=== PATIENT | male | born 1995 | race Caucasian/White ===

== ENCOUNTER 2017-11-26 08:50 | Emergency (ER) | payer OTHER, SELFPAY ==
[2017-11-26 09:21] VITALS: BP 135/77; PULSE 96; RESP 20; TEMP 36.6; O2SAT 97; BMI 25.8
--- NOTE | 2017-11-26 09:45 | HMH.EDUTC ---
[facility] [place] Clinical Impression: Acute pharyngitis Qualifiers: Pharyngitis/tonsillitis etiology: unspecified etiology Qualified Code(s): J02.9 - Acute pharyngitis, unspecified Disposition: Home, Self-Care Condition on Discharge: Good Instructions: DI for Viral Pharyngitis Additional Instructions: * No sign of bacterial infection. Likely viral. Virus can take 7-14 days to run their course * Monitor Temp. Tylenol every 4 hours as needed no more then 5 times a day or 4000mg in 24 hours and/or ibuprofen every 6 hours as needed no more then 3200mg in 24 hours (as long as your primary care doctor has told you that it is ok to take both) for fever/aches/pain. ER if fever no less than 101 despite tylenol and ibuprofen * Encourage fluids, water, gatorade, powerade, pedialyte if /toddler/child * warm salt water gargles * warm fluids * sore throat lozenges * sleep elevated * humidifier/vaporizer * Continue flonase. 2 sprays each nostril daily but may take 2-3 days to notice improvement with it. * Continue antihistamine * * Your throat swab was sent for culture. Those results are typically sent to your primary care. Be sure to follow up in 2-3 days if no improvement so they can review those results and treat if necessary. If you don't have primary care, I recommend you get one but in the mean time, you will have to return to a walk in clinic. Referrals: Provider,Referral, [Primary Care Provider] - (Immediately for new or worsening symptoms or if no noticeable improvement in 2-3 days. Follow up in 2-3 days on throat culture results) Forms: Work/School Release Time of Disposition: 10:07 Medical Decision Making Vital Signs: 11/26/17 09:21 Temperature 98 F Temperature Source Temporal Artery Scan Pulse Rate [Left Brachial] 96 H Respiratory Rate 20 Blood Pressure [Left Arm] 135/77 Blood Pressure Mean [Left Arm] 96 Blood Pressure Source [Left Arm] Automatic Cuff Blood Pressure Position [Left Arm] Sitting 02 Sat by Pulse Oximetry 97 Oxygen Delivery Method Room Air - Lab Data Lab results reviewed: Yes: I reviewed the patient's lab results. - Johnathan Inquiry Pt receiving controlled substance: No [facility] [place] - General Stated complaint: soa congestion Time Seen by Provider: 11/26/17 09:35 Mode of Arrival: Ambulatory Source of Information: Patient Limitations: No Limitations Description of Symptoms (Recalled from Triage Doc. by RN): Sinus pressure and congestion HEENT Symptoms (Recalled from RN notes): Yes (sinus pressure and congestion) Resp Symptoms (Recalled from RN notes): No Skin Symptoms (Recalled from RN notes): No MS Symptoms (Recalled from RN notes): No Functional Status (Recalled from RN notes): n/a - History of Present Illness Provider Complaint: c/o nasal congestion starting late Wednesday, woke up with nasal congestion and just felt tired and weak . Last night took zyrtec, flonase and drank pickle juice before bed. Woke up this morning with worsening nasal congestion, sore throat, mild cough. No known sick contacts. - Related Data Allergies Allergy/AdvReac Type Severity Reaction Status Date / Time No Known Allergies Allergy Verified 11/26/17 09:31 - Worker's Comp Is this a Worker's Comp case?: No H History I have reviewed the patient's past medical history: Yes Medical History: Denies:: Cancer, Diabetes Mellitus Type 1, Diabetes Mellitus Type 2, Hypertension, MRSA Other Surgeries: Yes: No Previous Surgery Amputation: No Fractures: No - *Social History Smoking Status: Current every day smoker Tobacco Type: cigarettes Alcohol Intake: never - Psychiatric History Expresses thoughts of harming self/others: None Suicide Plan Description: No Plan ROS Obtained: Yes Systems reviewed as appropriate & no additional complaints - Constitutional Constitutional: Denies body ache, Reports chills, Denies difficulty sleeping, Reports fatigue, Denies fever(s), Denies poor appetite
--- NOTE | 2017-11-26 09:48 | ED_ITS ---
[facility] [place] Clinical Impression: Acute pharyngitis Qualifiers: Pharyngitis/tonsillitis etiology: unspecified etiology Qualified Code(s): J02.9 - Acute pharyngitis, unspecified Disposition: Home, Self-Care Condition on Discharge: Good Instructions: DI for Viral Pharyngitis Additional Instructions: * No sign of bacterial infection. Likely viral. Virus can take 7-14 days to run their course * Monitor Temp. Tylenol every 4 hours as needed no more then 5 times a day or 4000mg in 24 hours and/or ibuprofen every 6 hours as needed no more then 3200mg in 24 hours (as long as your primary care doctor has told you that it is ok to take both) for fever/aches/pain. ER if fever no less than 101 despite tylenol and ibuprofen * Encourage fluids, water, gatorade, powerade, pedialyte if /toddler/ child * warm salt water gargles * warm fluids * sore throat lozenges * sleep elevated * humidifier/vaporizer * Continue flonase. 2 sprays each nostril daily but may take 2-3 days to notice improvement with it. * Continue antihistamine * * Your throat swab was sent for culture. Those results are typically sent to your primary care. Be sure to follow up in 2-3 days if no improvement so they can review those results and treat if necessary. If you don't have primary care , I recommend you get one but in the mean time, you will have to return to a walk in clinic. Referrals: Provider,Referral, [Primary Care Provider] - (Immediately for new or worsening symptoms or if no noticeable improvement in 2-3 days. Follow up in 2- 3 days on throat culture results) Forms: Work/School Release Time of Disposition: 10:07 Medical Decision Making Vital Signs: 11/26/17 09:21 Temperature 98 F Temperature Source Temporal Artery Scan Pulse Rate [Left Brachial] 96 H Respiratory Rate 20 Blood Pressure [Left Arm] 135/77 Blood Pressure Mean [Left Arm] 96 Blood Pressure Source [Left Arm] Automatic Cuff Blood Pressure Position [Left Arm] Sitting 02 Sat by Pulse Oximetry 97 Oxygen Delivery Method Room Air - Lab Data Lab results reviewed: Yes: I reviewed the patient's lab results. - Johnathan Inquiry Pt receiving controlled substance: No [facility] [place] - General Stated complaint: soa congestion Time Seen by Provider: 11/26/17 09:35 Mode of Arrival: Ambulatory Source of Information: Patient Limitations: No Limitations Description of Symptoms (Recalled from Triage Doc. by RN): Sinus pressure and congestion HEENT Symptoms (Recalled from RN notes): Yes (sinus pressure and congestion) Resp Symptoms (Recalled from RN notes): No Skin Symptoms (Recalled from RN notes): No MS Symptoms (Recalled from RN notes): No Functional Status (Recalled from RN notes): n/a - History of Present Illness Provider Complaint: c/o nasal congestion starting late Wednesday, woke up with nasal congestion and just felt tired and weak . Last night took zyrtec, flonase and drank pickle juice before bed. Woke up this morning with worsening nasal congestion, sore throat, mild cough. No known sick contacts. - Related Data Allergies Allergy/AdvReac Type Severity Reaction Status Date / Time No Known Allergies Allergy Verified 11/26/17 09:31 - Worker's Comp Is this a Worker's Comp case?: No H History I have reviewed the patient's past medical history: Yes Medical History: Denies:: Cancer, Diabetes Mellitus Type 1, Diabetes Mellitus Type 2, Hypertension, MRSA
[2017-11-26 10:08] LABS: UTC Influenza A Antigen Negative (Negative); UTC Influenza B Antigen Negative (Negative)
[2017-11-26 10:10] LABS: UTC Strep Screen (Rapid) Negative (Negative)
[2017-11-26 10:11] VITALS: BP 135/77; PULSE 96; RESP 20; TEMP 36.6; O2SAT 97
== END 2017-11-26 10:12 | disposition home or self-care (01) ==
PROVIDERS: Emergency Provider Nurse Practitioner Family; Family Provider Pediatrics
DX: J02.9 Acute pharyngitis, unspecified (principal)
CPT/HCPCS: 87804; 87880; 99202

== ENCOUNTER → 2018-05-12 13:34 | Outpatient (CLI) | payer OTHER, SELFPAY ==
--- NOTE | 2018-05-12 13:36 | MR_ITS ---
MR head/brain wo/w con HISTORY: ITS.REASON: INTRACTABLE ACUTE POST-TRAUMATIC HEADACHE ORDERING PHYSICIAN: Natalia Gonzalez MD PATIENT AGE: 23 years Comparison: 04/26/2018 TECHNIQUE: Standard multiplanar multiecho sequences are performed without and with gadolinium enhancement . FINDINGS: No midline shift, mass effect, intracranial hemorrhage, or hydrocephalus is evident. No enhancing lesions are apparent. No intra or extra-axial mass. No evidence of intra or extra-axial hemorrhage. The cerebellopontine angles, cerebellum, and brainstem are unremarkable. The pituitary and optic chiasm are unremarkable. No cerebellar ectopia. The craniocervical junction has an unremarkable appearance. There is no evidence of infarction. There is a 2 cm retention cyst in the left maxillary sinus. No mastoid effusion. IMPRESSION: 1. No acute intracranial findings. 2. 2 cm left maxillary retention cyst
== END ==
PROVIDERS: Family Provider Pediatrics; PCP Pediatrics; Visit Provider Emergency Medicine
DX: G44.311 Acute post-traumatic headache, intractable (principal)
CPT/HCPCS: 70553; A9576

== ENCOUNTER → 2018-06-16 15:13 | Outpatient (POV) | payer OTHER, SELFPAY | PROVIDERS: Family Provider Pediatrics; PCP Emergency Medicine; Visit Provider Dermatology | DX: Z00.00 Encounter for general adult medical examination without abnormal findings (principal) ==

== ENCOUNTER → 2018-07-04 15:56 | Outpatient (CLI) | payer OTHER, SELFPAY | PROVIDERS: PCP Emergency Medicine; Visit Provider Otolaryngology | DX: G47.33 Obstructive sleep apnea (adult) (pediatric) (principal); R06.83 Snoring; R40.0 Somnolence; R51 Headache ==

== ENCOUNTER → 2018-08-05 14:03 | Outpatient (CLI) | payer OTHER, SELFPAY | PROVIDERS: PCP Emergency Medicine; Visit Provider Otolaryngology | DX: G47.33 Obstructive sleep apnea (adult) (pediatric) (principal); R06.83 Snoring; R40.0 Somnolence; R51 Headache | CPT/HCPCS: 95806 ==

== ENCOUNTER → 2020-04-09 07:53 | Outpatient (CLI) | payer BC, SELFPAY ==
[2020-04-09 08:16] LABS: Basophils # 0.1 K/mm3 (0-0.2); Basophils % 0.7 % (0.1-2.0); Eosinophils # 0.3 K/mm3 (0.0-0.4); Eosinophils % 4.4 % (0.1-12.0); Hematocrit 46.9 % (42.0-52.0); Hemoglobin 16.9 g/dL (14.1-18.0); Lymphocytes # 2.4 K/mm3 (0.7-4.5); Lymphocytes % 33.8 % (10-50); Mean Corpuscular Volume 86.1 fl (80-94); Mean Platelet Volume 6.8 fl (7.4-10.4); Monocytes # 0.6 K/mm3 (0.1-1.0); Monocytes % 8.3 % (1.7-9.3); Neutrophils # 3.8 K/mm3 (1.8-7.8); Neutrophils % 52.7 % (37.0-80.0); Platelet Count 321 K/mm3 (142-424); Red Blood Count 5.45 M/mm3 (4.60-6.20); White Blood Count 7.1 K/mm3 (4.8-10.8)
[2020-04-09 09:54] LABS: Chloride 104 mmol/L (98-107); Potassium 4.9 mmoL/L (3.5-5.1); Sodium 138 mmol/L (136-145)
[2020-04-09 09:57] LABS: Anion Gap 13.9 mEq/L (5-15); Blood Urea Nitrogen 16 mg/dl (9-20); Calcium 10.1 mg/dl (8.4-10.2); Carbon Dioxide 25 mmol/L (22.0-30.0); Estimated Glomerular Filt Rate 92 ml/min (>60); GFR (African American) 111 ML/MIN (>60); Glucose 99 mg/dl (74-100)
[2020-04-09 12:49] LABS: Coronavirus 19 IgG Antibody Negative (Negative); Coronavirus 19 IgM Antibody Negative (Negative)
== END ==
PROVIDERS: Visit Provider Surgery
DX: Z01.818 Encounter for other preprocedural examination (principal); R10.9 Unspecified abdominal pain
CPT/HCPCS: 36415; 80048; 85025; 86328

== ENCOUNTER 2020-04-10 06:12 | Day surgery (SDC) | payer BC, SELFPAY ==
[2020-04-09 09:06] VITALS: BMI 29.7
[2020-04-10] VITALS (13 sets, daily range): BP systolic 100–159; BP diastolic 60–96; PULSE 56–82; RESP 16–20; TEMP 36.3–36.8; O2SAT 96–99
--- NOTE | 2020-04-10 06:58 | HMH.ANESCL ---
[facility] [place] Anesthesia Checklist - Patient Identification Patient Identification: Arm Band, Verbal (Name & ) - Structural Data Admitted From: Home Planned Operative Procedure/s: umbilical hernia Consent for Planned Operative Procedure(s) Verified: Yes Verified Documents: History and Physical - NPO Status Verified Time NPO: 00:00 - Chart Verification Results Verified: CBC, BMP - Additional verifications Patient : No Anesthesia Reactions: No Hx Blood Transfusions: No Blood Transfusion Reaction: No Cephalosporin Allergy: No Previous Colonoscopy: No - Cardiovascular Assessment Heart Sounds: S1 & S2 Pulse Strength: Baseline Pulse Rhythm: Regular Peripheral Edema: No - Airway Assessment C-Spine Mobility Assessed: Yes TMJ Mobility Assessed: Yes Dentition: Good Dentition - Neurological Assessment Level of Consciousness: Awake, Alert, Appropriate Hx Seizures: No Numbness or tingling in extremities: No - Anesthesia Plan Anesthesia Risk discussed: Yes Anesthesia Plan: Verified ASA Class: II Anesthesia Type: General [facility] History I have reviewed the patient's past medical history: Yes Medical History: Reports:: Asthma Denies:: Cancer, Diabetes Mellitus Type 1, Diabetes Mellitus Type 2, Hypertension, Internal Pacemaker, MRSA, Seizures *Have you ever received a pneumonia vaccine?: No *Have you received a flu vaccine this season?: No Other Medical History: Denies: Blood Transfusion Reaction Anesthesia experience/problems:: ponv Other Surgeries: Yes: No Previous Surgery, Other. No: Pacemaker Amputation: No Fractures: Yes (nasal fracture) - *Social History Educational Level: Completed High School Smoking Status: Never smoker Tobacco Type: smokeless tobacco # Packs/Day (cigarettes): 0 Alcohol Intake: never Alcohol Intake Frequency:: holidays/special occasions only Substance Use Type: other *Occupational Status:: employed Housing: house Household Members: spouse *Travel in the last 8 weeks: None Family Hx:: No significant family history
--- NOTE | 2020-04-10 08:11 | HMH.OPNOTE ---
Date of procedure: 04/10/20 Pre-op Diagnosis:: Umbilical hernia Post-op Diagnosis:: Chronically incarcerated umbilical hernia Procedure performed:: Open repair of chronically incarcerated umbilical hernia with placement of small sized Bard ventral Lucian mesh (4.3 cm) Surgeon:: Marco Escalante MD COMMUTATOR TESTER:: Joaquin Mcclure Anesthesia: GETA Estimated blood loss (mL): 15 Clinical Note:: Patient is a 24-year-old male referred by Rocio Fonseca for umbilical hernia. Patient has noted a bulge at his umbilical area somewhat to the left. He has noticed increased pain with particularly carbonated beverage intake. He had been able to partially reduce the area with some relief. 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 This was confirmed and he was sent for surgical consultation. Operative findings:: Patient is a small defect measuring about 8 mm or so containing chronically incarcerated omentum. Operative note:: Patient was taken to the operating room. He was given preoperative intravenous antibiotics. In the operating room he was placed in a supine position and general anesthesia was induced. Abdomen was prepped and draped in the standard surgical fashion. Subumbilical skin incision was made. Dissection was carried down through superficial subcutaneous tissues. Herniated fatty tissues with a thin hernia sac was encountered. Dissection was carried out around this down to the fascia. The hernia sac was opened with electrocautery. However, the contents were unable to be easily reduced. The herniated fatty tissues were then clamped and excised and the pedicles ligated with Vicryl tie. Tissues were then able to be reduced. The underlying adhesions were cleaned free allowing for placement of mesh. Once fascial edges were cleaned free a small sized Bard VentraLEX mesh measuring 4.3 cm in diameter was inserted posterior to the fascial defect. It was oriented. The think this term tails of the mesh were sutured superiorly and inferiorly to the fascial edge with 2-0 Prolene suture. The tails of the mesh were then cut flush with the fascia. Fascia was closed over the mesh with several interrupted 0 Ethibond sutures. Repair appeared adequate. Local anesthetic was infiltrated. Umbilical sub-dermis was reapproximated to the underlying fascia with a couple of 2-0 Vicryl sutures. Several 2-0 Vicryl sutures were placed in the subdermal tissues. Skin was closed with 4-0 Monocryl subcuticular fashion. Steri-Strips and dressings were applied. Condition: stable Disposition: PACU Specimens:: Herniated contents Complications:: None immediately apparent
--- NOTE | 2020-04-10 08:21 | HMH.ANESI ---
[facility] Anesthesia Record Part I Intake, IV Amount: 550 Estimated blood loss (mL): 5 Urine output (mL): 0 Blood Products used (#): none Blood Pressure: 100/60 SaO2: 99 Pulse Rate: 75 Respiratory Rate: 20 Temperature: 97.4 F Patient is:: Awake, Stable Stable to PACU at:: 08:18
--- NOTE | 2020-04-10 10:30 | P.PN_ITS ---
[facility] Anesthesia Record Part II Discharge Time: 08:48 Destination: Surgical Day Care (OP Surgery) PACU nurse assessment reviewed?: Yes Patient Condition:: Good Anesthesia Complications:: None Swallowing reflex intact?: Yes Cyanosis?: No Blood Pressure: 141/80 Pulse Rate: 66 Temperature: 97.4 F Mental Status: Alert & Oriented Pain level:: 2 Nausea and/or vomitting:: None Intake, IV Amount: 25
--- NOTE | 2020-04-10 12:04 | PC.NURSE ---
0848-detailed report given to CHAPIS Faith at bedside 0849-pt transported to post op via stretcher w/dena rails up per CHAPIS Faith, vss, pt stable
== END 2020-04-10 09:30 | disposition home or self-care (01) ==
LOC: OR 06:13
PROVIDERS: PCP Family Medicine; Visit Provider Surgery
PROC: (CPT 49585; principal; 2020-04-10 07:30)
DX: K42.9 Umbilical hernia without obstruction or gangrene (principal); J45.909 Unspecified asthma, uncomplicated; Z88.8 Allergy status to other drugs, medicaments and biological substances
CPT/HCPCS: 49585; 96374; C1781; J2405

== ENCOUNTER 2020-09-15 10:16 | Emergency (ER) | payer BC, SELFPAY ==
[2020-09-15 10:55] VITALS: BP 131/77; PULSE 96; RESP 14; TEMP 36.9; O2SAT 99; BMI 27.3
--- NOTE | 2020-09-15 11:01 | HMH.EDUTC ---
[facility] [place] Clinical Impression: Exposure to COVID-19 virus, Strep sore throat Disposition: Home, Self-Care Condition on Discharge: Good Instructions: Preventing the Spread of Coronavirus Discharge Instructions, DI for Strep Throat Additional Instructions: isolate until test results are known Prescriptions: Azithromycin [Zithromax 250mg tab] 250 mg PO DIRECTED #6 tab Transmission Status: Pending to [id number] Referrals: Rodrigo Wong MD [Primary Care Provider] - Forms: Work/School Release Time of Disposition: 11:26 Medical Decision Making - Johnathan Inquiry Pt receiving controlled substance: No Vital Signs: 09/15/20 10:55 Temperature 98.5 F Temperature Source Oral Pulse Rate [Right Brachial] 96 H Respiratory Rate 14 Blood Pressure [Right Arm] 131/77 Blood Pressure Mean [Right Arm] 95 Blood Pressure Source [Right Arm] Automatic Cuff Blood Pressure Position [Right Arm] Sitting 02 Sat by Pulse Oximetry 99 Oxygen Delivery Method Room Air [facility] [place] - General Chief complaint: [facility] Stated complaint: sore throat, wants covid test Time Seen by Provider: 09/15/20 11:01 Mode of Arrival: Ambulatory Source of Information: Patient Limitations: No Limitations Description of Symptoms (Recalled from Triage Doc. by RN): PATIENT REQUESTING COVID TEST D/T SECONDARY EXPOSURE. DENIES SYMPTOMS HEENT Symptoms (Recalled from RN notes): No Resp Symptoms (Recalled from RN notes): No Skin Symptoms (Recalled from RN notes): No MS Symptoms (Recalled from RN notes): No Functional Status (Recalled from RN notes): WNL - History of Present Illness Provider Complaint: 25 yr old male presnets for covid test. pt had a exposer but denies symptoms. - Related Data Previous Rx's Medication Instructions Recorded Azithromycin [Zithromax 250mg 250 mg PO DIRECTED #6 tab 09/15/20 tab] Allergies Allergy/AdvReac Type Severity Reaction Status Date / Time antivenom Allergy Intermediate Uncoded 05/10/20 13:58 - Worker's Comp Is this a Worker's Comp case?: No [facility] History - Hepatitis A Screen Drug use history?: No High risk sexual behaviors?: No History of sexually transmitted infection?: No Currently employed?: No Childcare worker?: No Do you have indoor plumbing?: Yes Do you have electricity?: Yes Attestation statement:: This patient has been screened for Hepatitis A risk factors. I have reviewed the patient's past medical history: Yes Medical History: Reports:: Asthma Denies:: Cancer, Diabetes Mellitus Type 1, Diabetes Mellitus Type 2, Hypertension, Internal Pacemaker, MRSA, Seizures Other Medical History: Denies: Blood Transfusion Reaction Other Surgeries: Yes: No Previous Surgery, Hernia Repair, Other. No: Pacemaker Amputation: No Fractures: Yes (nasal fracture) - Social History Smoking Status: Never smoker Tobacco Type: smokeless tobacco # Packs/Day (cigarettes): 0 Alcohol Intake: never Alcohol Intake Frequency:: holidays/special occasions only Substance Use Type: other, denies use Occupational Status: other Housing: house Household Members: spouse Family Hx:: No significant family history ROS Obtained: Yes Systems reviewed as appropriate & no additional complaints - Constitutional Constitutional: Reports system reviewed and no additional complaints, except as docu, Denies fever(s) - Eyes Eyes: Reports system reviewed and no additional complaints, except as docu, Denies blurry vision - ENT Ears, Nose, Mouth, and Throat: Reports system reviewed and no additional complaints, except as docu - Cardiovascular Cardiovascular: Reports system reviewed and no additional complaints, except as docu - Respiratory Respiratory: Yes system reviewed and no additional complaints, except as docu - Gastrointestinal Gastrointestingal: Reports: system reviewed and no additional complaints, except as docu - Genitourinary Male Genitourinary: Reports
[2020-09-15 11:29] VITALS: BP 131/77; PULSE 96; RESP 14; TEMP 36.9; O2SAT 99
[2020-09-16 19:23] LABS: UTC Strep Screen (Rapid) Negative (Negative)
[2020-09-17 12:58] LABS: Covid-19 Nasal PCR Sendout Lex Not Detected
== END 2020-09-15 11:35 | disposition home or self-care (01) ==
PROVIDERS: Emergency Provider Nurse Practitioner Family; PCP Family Medicine
DX: Z20.828 Contact with and (suspected) exposure to other viral communicable diseases (principal); J02.9 Acute pharyngitis, unspecified
CPT/HCPCS: 87880; 99202; U0004

== ENCOUNTER 2021-05-23 19:06 | Emergency (ER) | payer BC, SELFPAY ==
[2021-05-23 19:10] VITALS: BP 137/87; PULSE 88; RESP 19; TEMP 37.1; O2SAT 97; BMI 29.7
--- NOTE | 2021-05-23 19:24 | HMH.EDUTC ---
[facility] [place] Disposition Clinical Impression: Exposure to COVID-19 virus, URI with cough and congestion Disposition: Home, Self-Care Condition on Discharge: Good Instructions: Cough, Guaifenesin, DI for COVID-19 (Suspected or Confirmed ), Coronavirus Disease 2019, Preventing the Spread of Coronavirus Discharge Instructions Additional Instructions: *Monitor Temp, Over the counter Motrin or Tylenol as directed/as needed Tylenol every 4 hours and Motrin every 6 hours (as long as your family doctor has told you that you can take it) for fever or pain. and straight to ER if unable to lower temp less than 101.0 after medication given *Warm salt water gargles may help to soothe the throat *Throat Lozenges *Warm fluids like tea with honey may help to soothe the throat *Sleep elevated *Humidifier/Vaporizer *Flonase 2 sprays in each nostril daily but be aware that it may take 2-3 days before you notice improvement Follow up IMMEDIATELY for new or worsening symptoms or no Noticeable improvement over the next 48-72 hours. 911 for difficulty breathing or swallowing You were tested for today for COVID19 your test result should be back in the next 24-48 hours, you may call to the [facility] to see if your test results are back in the next 48 hours [phone] [facility] hours are 9am-9pm You was given a handout with instructions for Self Quarantine and Self isolation for while you wait on test results and what to do if they are positive If you are positive the Health Dept will be contacting you also Make sure to take your Vitamins Vit. C Vit D and Zinc if you can take them Prescriptions: guaiFENesin [Mucinex 600mg tablet] 1 - 2 tab PO Q12HP PRN #20 tab.er.[id number] PRN Reason: Congestion Transmission Status: [facility] Fluticasone Propionate [Flonase 50mcg nasal spray 16gm] 1 spr NS DAILY #1 ml Transmission Status: P[facility] to [facility] Referrals: Rodrigo Wong MD [Primary Care Provider] - As needed Forms: Work/School Release Time of Disposition: 20:01 Medical Decision Making - Johnathan Inquiry Pt receiving controlled substance: No Johnathan was queried for this patient: No Vital Signs: 05/23/21 19:10 05/23/21 19:49 Temperature 98.8 F 98.8 F Temperature Source Oral Pulse Rate 88 Pulse Rate [Right Brachial] 88 Respiratory Rate Blood Pressure 137/87 Blood Pressure [Right Arm] 137/87 Blood Pressure Mean [Right Arm] 103 Blood Pressure Source [Right Arm] Automatic Cuff Blood Pressure Position [Right Arm] Sitting 02 Sat by Pulse Oximetry 97 Oxygen Delivery Method Room Air Orders (Tests/Meds): ORDERS Category Date Time Status Full Resp Panel w/COVID ([facility]) Routine Lab 05/23/21 19:16 Received - Radiology Data #1 Image(s): Chest Image Reviewed: Yes I have reviewed radiologist's interpretation IMPRESSION: No acute findings. [facility] [place] HPI - General Stated complaint: SORE THROAT,COUGH Time Seen by Provider: 05/23/21 19:24 Mode of Arrival: Ambulatory Source of Information: Patient Limitations: No Limitations Description of Symptoms (Recalled from Triage Doc. by RN): COVID TEST D/T EXPOSURE AT WORK. C/O COUGH AND CHEST CONGESTION X 1 WEEK HEENT Symptoms (Recalled from RN notes): No Resp Symptoms (Recalled from RN notes): Yes Skin Symptoms (Recalled from RN notes): No MS Symptoms (Recalled from RN notes): No Functional Status (Recalled from RN notes): WNL - History of Present Illness Provider Complaint: Patient states that he was around someone at work that tested positive for COVID, States that he started feeling bad about a week ago and took an at home COVID test and it was negative State that he did a TeleHealth Visit and was given zpack and bromfed State that he has since completed it but still having cough and chest congestion so he came in to get tested for COVID test - Related Data Previous Rx's Medication Instructions Recorded Azithromycin [Zithromax 250mg 250 mg PO
--- NOTE | 2021-05-23 19:25 | XR_ITS ---
PROCEDURE INFORMATION: Exam: XR Chest Exam date and time: 05/23/2021 7:25 PM Age: 26 years old Clinical indication: Patient HX: Cough congestion TECHNIQUE: Imaging protocol: XR of the chest. Views: 2 views. COMPARISON: CR CXR2V XR chest 2V 04/26/2018 7:42 AM FINDINGS: Lungs: There is mild hypoventilation/low lung volumes on the frontal view. No acute findings. No focal consolidation. Pleural spaces: Unremarkable. No significant pleural effusion. No pneumothorax. Heart/Mediastinum: The cardiac silhouette is normal size. The chronic small pericardial fat pad or pleural reflection at the right cardiophrenic angle. Bones/joints: There is no evidence of acute fracture. IMPRESSION: No acute findings.
[2021-05-23 19:49] VITALS: BP 137/87; PULSE 88; RESP 19; TEMP 37.1; O2SAT 97
[2021-05-23 19:54] LABS: Adenovirus,PCR Not Detected (NotDetected); Bordetella Pertussis Not Detected (NotDetected); Chlamydophila Pneumoniae, PCR Not Detected (NotDetected); Coronavirus 19, PCR Not Detected (NotDetected); Coronavirus 229E Not Detected (NotDetected); Coronavirus NL63 Not Detected (NotDetected); Coronavirus OC43 Not Detected (NotDetected); Coronovirus HKU1,PCR Not Detected (NotDetected); Human Metapneumovirus Not Detected (NotDetected); Influenza A, PCR Not Detected (NotDetected); Influenza AH1, 2009 Not Detected (NotDetected); Influenza AH1, PCR Not Detected (NotDetected); Influenza AH3,PCR Not Detected (NotDetected); Influenza B, PCR Not Detected (NotDetected); Mycoplasma Pneumoniae, PCR Not Detected (NotDetected); Parainfluenza 1, PCR Not Detected (NotDetected); Parainfluenza 2, PCR Not Detected (NotDetected); Parainfluenza 3, PCR Not Detected (NotDetected); Parainfluenza 4, PCR Not Detected (NotDetected); Respiratory Syncytial Virus Not Detected (NotDetected)
[2021-05-23 21:17] LABS: Rhinovirus/Enterovirus Detected (NotDetected)
== END 2021-05-23 20:05 | disposition home or self-care (01) ==
PROVIDERS: Emergency Provider Nurse Practitioner; PCP Family Medicine
DX: J06.9 Acute upper respiratory infection, unspecified (principal); Z20.822 Contact with and (suspected) exposure to COVID-19; J45.909 Unspecified asthma, uncomplicated
CPT/HCPCS: 71046; 87581; 87633; 87798; 99202; G0463

== ENCOUNTER 2021-10-09 15:29 | Emergency (ER) | payer BC, SELFPAY ==
[2021-10-09 15:47] VITALS: BP 157/77; PULSE 133; RESP 20; TEMP 37.9; O2SAT 97; BMI 29.6
--- NOTE | 2021-10-09 16:10 | HMH.EDUTC ---
[facility] [place] Clinical Impression: Viral syndrome Disposition: Home, Self-Care Condition on Discharge: Good Instructions: Sore Throat, DI for Viral Syndrome, DI for Fever (Symptom) -- Adult, DI for COVID-19 (Suspected or Confirmed ) Additional Instructions: *Monitor Temp, Over the counter Motrin or Tylenol as directed/as needed Tylenol every 4 hours and Motrin every 6 hours (as long as your family doctor has told you that you can take it) for fever or pain. and straight to ER if unable to lower temp less than 101.0 after medication given *Warm salt water gargles may help to soothe the throat *Throat Lozenges *Warm fluids like tea with honey may help to soothe the throat *Sleep elevated *Humidifier/Vaporizer Your throat swab was sent for culture. Those results are typically sent to your primary care. Be sure to follow up in 2-3 days with your family doctor/primary care physician if no improvement so they can review those result and treat if necessary. If you don?t have a primary care doctor, I recommend you get one but in the mean time, you will have to return to a walk in clinic Follow up IMMEDIATELY for new or worsening symptoms or no Noticeable improvement over the next 48-72 hours. 911 for difficulty breathing or swallowing You were tested for today for COVID19 your test result should be back in the next 24-48 hours, you may check your results on the [facility] My Health Portal if you have trouble logging on you may call You was given a handout with instructions for Self Quarantine and Self isolation for while you wait on test results and what to do if they are positive If you are positive the Health Dept will be contacting you also Make sure to take your Vitamins Vit. C Vit D and Zinc if you can take them Referrals: Rodrigo Wogn MD [Primary Care Provider] - As needed Forms: Work/School Release Time of Disposition: 16:38 Medical Decision Making - Johnathan Inquiry Pt receiving controlled substance: No Johnathan was queried for this patient: No Vital Signs: 10/09/21 15:47 10/09/21 16:46 Temperature 100.3 F H 99.7 F H Temperature Source Oral Pulse Rate 124 H Pulse Rate [Left] 133 H Respiratory Rate 20 16 Blood Pressure 135/73 Blood Pressure [Right Arm] 157/77 H Blood Pressure Mean [Right Arm] 103 02 Sat by Pulse Oximetry 97 - Lab Data Lab results reviewed: Yes: I reviewed the patient's lab results. Lab Results 10/09/21 15:47: Chlamy pneumoniae PCR Not detected, Adenovirus (PCR) Not detected, B. pertussis DNA (PCR) Not detected, Coronavirus OC43 (PCR) Not detected, Coronavirus HKU1 (PCR) Not detected, Coronavirus 229E (PCR) Not detected, SARS-CoV-2 (PCR) Detected A, Coronavirus NL63 (PCR) Not detected, Human Metapneumovir PCR Not detected, Influenza A (H1) PCR Not detected, Influ A (H1N1/09) PCR Not detected, Influenza A (H3) PCR Not detected, Influenza Type A (PCR) Not detected, Influenza Type B (PCR) Not detected, M. pneumoniae (PCR) Not detected, Parainfluenza 1 (PCR) Not detected, Parainfluenza 2 (PCR) Not detected, Parainfluenza 3 (PCR) Not detected, Parainfluenza 4 (PCR) Not detected, RSV (PCR) Not detected, Entero/Rhino (PCR) Not detected 10/09/21 16:23: Strep Scn Rapid Clinic Negative 10/09/21 16:23: Influenza Type A Ag Negative, Influenza Type B Ag Negative Orders (Tests/Meds): ED MEDICATIONS Discontinued Medications Generic Name Dose Route Start Last Admin Trade Name Freq PRN Reason Stop Dose Admin Acetaminophen 975 mg 10/09/21 16:17 10/09/21 16:00 Acetaminophen 325mg Tab PO 10/09/21 16:18 975 mg ONCE ONE Administration Ibuprofen 400 mg 10/09/21 16:16 10/09/21 16:22 Ibuprofen 400 Mg Tablet PO 10/09/21 16:17 400 mg ONCE ONE Administration ORDERS Category Date Time Status Strep Screen Confirmation Routine Micro 10/09/21 16:23 Received [facility] [place] - General Stated complaint: sore throat, weakness, aches, congestion headache Time Seen by Provid
[2021-10-09 16:24] LABS: UTC Strep Screen (Rapid) Negative (Negative)
[2021-10-09 16:26] LABS: UTC Influenza A Antigen Negative (Negative)
[2021-10-09 16:27] LABS: UTC Influenza B Antigen Negative (Negative)
[2021-10-09 16:33] LABS: Adenovirus,PCR Not Detected (NotDetected); Bordetella Pertussis Not Detected (NotDetected); Chlamydophila Pneumoniae, PCR Not Detected (NotDetected); Coronavirus 229E Not Detected (NotDetected); Coronavirus NL63 Not Detected (NotDetected); Coronavirus OC43 Not Detected (NotDetected); Coronovirus HKU1,PCR Not Detected (NotDetected); Human Metapneumovirus Not Detected (NotDetected); Influenza A, PCR Not Detected (NotDetected); Influenza AH1, 2009 Not Detected (NotDetected); Influenza AH1, PCR Not Detected (NotDetected); Influenza AH3,PCR Not Detected (NotDetected); Influenza B, PCR Not Detected (NotDetected); Mycoplasma Pneumoniae, PCR Not Detected (NotDetected); Parainfluenza 1, PCR Not Detected (NotDetected); Parainfluenza 2, PCR Not Detected (NotDetected); Parainfluenza 3, PCR Not Detected (NotDetected); Parainfluenza 4, PCR Not Detected (NotDetected); Respiratory Syncytial Virus Not Detected (NotDetected); Rhinovirus/Enterovirus Not Detected (NotDetected)
[2021-10-09 16:46] VITALS: BP 135/73; PULSE 124; RESP 16; TEMP 37.6
[2021-10-09 18:44] LABS: Coronavirus 19, PCR Detected (NotDetected)
== END 2021-10-09 16:51 | disposition home or self-care (01) ==
PROVIDERS: Emergency Provider Nurse Practitioner; PCP Family Medicine
DX: U07.1 COVID-19 (principal); B34.9 Viral infection, unspecified
CPT/HCPCS: 87581; 87632; 87798; 87804; 87880; 99203; C9803; G0463; U0003; U0005

== ENCOUNTER → 2021-10-13 15:17 | Outpatient (CLI) | payer BC, SELFPAY ==
[2021-10-13] VITALS (8 sets, daily range): BP systolic 103–129; BP diastolic 62–77; PULSE 77–95; RESP 14–18; TEMP 36.8; O2SAT 94–98
== END | disposition home or self-care (01) ==
PROVIDERS: Visit Provider Internal Medicine Pulmonary Disease
DX: U07.1 COVID-19 (principal); Z23 Encounter for immunization
CPT/HCPCS: 96365

== ENCOUNTER → 2021-10-18 09:09 | Outpatient (CLI) | payer BC, SELFPAY | PROVIDERS: PCP Family Medicine; Visit Provider Nurse Practitioner | DX: U07.1 COVID-19 (principal) | CPT/HCPCS: C9803; U0003; U0005 ==

== ENCOUNTER 2021-10-19 09:01 | Emergency (ER) | payer BC, SELFPAY ==
[2021-10-19 09:05] VITALS: BP 138/83; PULSE 86; RESP 19; TEMP 36.8; O2SAT 98; BMI 30.5
[2021-10-19 09:28] LABS: Adenovirus,PCR Not Detected (NotDetected); Bordetella Pertussis Not Detected (NotDetected); Chlamydophila Pneumoniae, PCR Not Detected (NotDetected); Coronavirus 229E Not Detected (NotDetected); Coronavirus NL63 Not Detected (NotDetected); Coronavirus OC43 Not Detected (NotDetected); Coronovirus HKU1,PCR Not Detected (NotDetected); Human Metapneumovirus Not Detected (NotDetected); Influenza A, PCR Not Detected (NotDetected); Influenza AH1, 2009 Not Detected (NotDetected); Influenza AH1, PCR Not Detected (NotDetected); Influenza AH3,PCR Not Detected (NotDetected); Influenza B, PCR Not Detected (NotDetected); Mycoplasma Pneumoniae, PCR Not Detected (NotDetected); Parainfluenza 1, PCR Not Detected (NotDetected); Parainfluenza 2, PCR Not Detected (NotDetected); Parainfluenza 3, PCR Not Detected (NotDetected); Parainfluenza 4, PCR Not Detected (NotDetected); Respiratory Syncytial Virus Not Detected (NotDetected); Rhinovirus/Enterovirus Not Detected (NotDetected)
--- NOTE | 2021-10-19 09:44 | HMH.EDUTC ---
[facility] Clinical Impression: COVID Disposition: Home, Self-Care Condition on Discharge: Good Instructions: DI for COVID-19 (Suspected or Confirmed ), Preventing the Spread of Coronavirus Discharge Instructions Additional Instructions: covid swab was sent to lab, call tomorrow for results. self isolate until test results are known to be negative No sign of a bacterial infection. Likely viral. Viruses can take 7-14 days to run their course. Nasal saline and bulb syringe or nose Valerie to remove nasal drainage to help with nasal congestion. Hard to eat, drink, sleep with nasal congestion so important to keep this cleaned out. Monitor temp. Tylenol or Motrin as needed for pain or fever Encourage fluids, water, Gatorade, Powerade, Pedialyte if infant/toddler/child Warm salt water gargles Warm fluids Sore throat lozenges Sleep elevated Humidifier/vaporizer Follow-up immediately for new or worsening symptoms or no noticeable improvement over the next 48-72 hours. Referrals: Rodrigo Wong MD [Primary Care Provider] - Time of Disposition: 09:49 Medical Decision Making - Johnathan Inquiry Pt receiving controlled substance: No Vital Signs: 10/19/21 09:05 Temperature 98.2 F Temperature Source Oral Pulse Rate [Right Brachial] 86 Respiratory Rate 19 Blood Pressure [Right Arm] 138/83 Blood Pressure Mean [Right Arm] 101 Blood Pressure Source [Right Arm] Automatic Cuff Blood Pressure Position [Right Arm] Sitting 02 Sat by Pulse Oximetry 98 Oxygen Delivery Method Room Air Orders (Tests/Meds): ORDERS Category Date Time Status Full Resp Panel w/COVID ([facility]) Routine Lab 10/19/21 09:10 Received [facility] [place] - General Chief complaint: Urgent [facility] Stated complaint: covid test Time Seen by Provider: 10/19/21 09:44 Mode of Arrival: Ambulatory Source of Information: Patient Limitations: No Limitations Description of Symptoms (Recalled from Triage Doc. by RN): PATIENT NEEDING COVID TEST TO RETURN TO WORK HEENT Symptoms (Recalled from RN notes): No Resp Symptoms (Recalled from RN notes): No Skin Symptoms (Recalled from RN notes): No MS Symptoms (Recalled from RN notes): No Functional Status (Recalled from RN notes): WNL - History of Present Illness Provider Complaint: 26 yr old male presnets for covid test. pt states he needs a neg to return to work. tested positive 10/09. pt states only symptom is a occ cough - Related Data Home Medications Medication Instructions Recorded Confirmed No Known Home Medications 10/13/21 10/13/21 Allergies Allergy/AdvReac Type Severity Reaction Status Date / Time antivenin,crotalidae Allergy Verified 10/19/21 09:28 polyvalent imm - Worker's Comp Is this a Worker's Comp case?: No [facility] History - Hepatitis A Screen Drug use history?: No High risk sexual behaviors?: No History of sexually transmitted infection?: No Currently employed?: No Childcare worker?: No Do you have indoor plumbing?: Yes Do you have electricity?: Yes Attestation statement:: This patient has been screened for Hepatitis A risk factors. I have reviewed the patient's past medical history: Yes Medical History: Reports:: Asthma Denies:: Cancer, Diabetes Mellitus Type 1, Diabetes Mellitus Type 2, Hypertension, Internal Pacemaker, MRSA, Seizures Other Medical History: Denies: Blood Transfusion Reaction Other Surgeries: Yes: No Previous Surgery, Hernia Repair, Other. No: Pacemaker Amputation: No Fractures: Yes (nasal fracture) - Social History Smoking Status: Never smoker Tobacco Type: smokeless tobacco # Packs/Day (cigarettes): 0 Alcohol Intake: never Alcohol Intake Frequency:: holidays/special occasions only Substance Use Type: other, denies use Occupational Status: other Housing: house Household Members: spouse Family Hx:: No significant family history ROS Obtained: Yes Systems reviewed as appropriate & no additional complaints - Constitutional Consti
[2021-10-19 09:52] VITALS: BP 138/83; PULSE 86; RESP 19; TEMP 36.8; O2SAT 98
[2021-10-19 11:45] LABS: Coronavirus 19, PCR Detected (NotDetected)
== END 2021-10-19 09:58 | disposition home or self-care (01) ==
PROVIDERS: Emergency Provider Nurse Practitioner Family; PCP Family Medicine
DX: U07.1 COVID-19 (principal); J45.909 Unspecified asthma, uncomplicated
CPT/HCPCS: 87581; 87632; 87798; 99202; C9803; G0463; U0003; U0005

== ENCOUNTER → 2021-10-20 10:59 | Outpatient (CLI) | payer BC, SELFPAY | PROVIDERS: Visit Provider Nurse Practitioner | DX: U07.1 COVID-19 (principal) | CPT/HCPCS: C9803; U0003; U0005 ==

== ENCOUNTER 2022-10-09 12:33 | Emergency (ER) | payer BC, SELFPAY ==
[2022-10-09 13:28] VITALS: BP 0/0; PULSE 0; RESP 0; TEMP -17.7; TEMP 0
== END 2022-10-09 13:32 | disposition left against medical advice (07) ==
PROVIDERS: Emergency Provider Nurse Practitioner
DX: Z53.8 Procedure and treatment not carried out for other reasons (principal)

== ENCOUNTER → 2022-10-09 13:40 | Outpatient (CLI) | payer BC, SELFPAY | PROVIDERS: PCP Student in an Organized Health Care Education/Training Program; Visit Provider Student in an Organized Health Care Education/Training Program | DX: U07.1 COVID-19 (principal) | CPT/HCPCS: C9803; U0003; U0005 ==

== ENCOUNTER 2025-02-16 21:02 | Emergency (ER) | payer BC, SELFPAY ==
--- OUTSIDE RECORDS SUMMARY | 2025-02-16 21:09 | XMS_ITS | Data Portability ---
Author Organization [facility] JAMES Portillo COPPELL CLOSED Address [address] [place] [address] Assessment No assessment recorded. Plan of Treatment Reminders Order Date Submit Date Provider Last Modified By Organization Details Last Modified Time Details Appointments None recorded. Lab None recorded. Referral None recorded. Procedures None recorded. Surgeries [facility]SURG[email or web address] Professional Charges, [address], [facility] [address], [place], [address], 16:53:58 Imaging None recorded. Medication Orders Bactrim DS 800 mg-160 mg tablet 2022 [facility], [address] [place] [address], [phone], 16:41:19 Percocet 7.5 mg-325 mg tablet 2022 023 [facility], [address] [place] [address] [address] [facility] [place] [address], [id number], 16:41:20 Patient TargetsNo targets recorded. Patient Instructions Encounter Date Encounter Id Patient Instructions Last Modified By Organization Details Last Modified Time 05/14/2023 [id number] DISCUSSION OF VASECTOMY : I explained vasectomy is one of the most effective methods of sterilization but is not a guarentee of sterilization. I explained that there are rare failures.I explained the method of performing a vasectomy. I have discussed postoperative instructions including reducing activity, the use of ice packs,use of oral analgesics as prescribed, activity and intercourse restrictions. He understands he is to use protected intercourse until further notice.Risks include but are not limited to bleeding, infection, swelling, bruising, hematoma, injury, damage or harm to testicle(s) or other interscrotal structures, possible anesthetic risks, possible general medical risks and and possible sperm granuloma. [email or web address] Not available 05/16/2023 10:09:36 Reason for Referral None Reported. Results Created Date Observation Date Name Description Value Unit Range Abnormal Flag Note LastModifiedBy Organization Detail LastModifiedTime 09/21/2009/21/2023 sperm count , semin al fluid (post vasec michael) Unknown Analyte Post Vas Specim en Not Available [facility] [address], [place], [address], 09/21/2023 09:39:45 09/21/2009/21/2023 sperm count , semin al fluid (post vasec michael) Unknown Analyte Clear Not Available [facility] [address], [place], [address], 09/21/2023 09:39:45 10/08/2010/08/2023 sperm count , semin al fluid (post vasec michael) Unknown Analyte Post Vas Specim en Not Available [facility] [address], [place], [address], 10/08/2023 09:42:09 10/08/20 23 10/08/2023 sperm count , semin al fluid (post vasec michael) Unknown Analyte Absent Not Available [facility] [address], [place], [address], 10/08/2023 09:42:09 10/08/2010/08/2023 sperm count , semin al fluid (post vasec michael) Unknown Analyte Non-Mo tile Not Available [facility] [address], [place], [address], 10/08/2023 09:42:09 10/08/20 23 10/08/2023 sperm count , semin al fluid (post vasec michael) Unknown Analyte TA Not Available [facility] [address], [place], [address], 10/08/2023 09:42:09 Result Notes None recorded. Problems No Known Problems Procedures Surgical History Date Name Laterality Status Provider Name and Address Organization Details Recorded Time Vasectomy completed JERALD MIRZA JR, MD [address] [place] [address], [id number], [facility] 07/14/2023 14:19:16 Hernia Repair completed Radha Hobbs [facility] 05/14/2023 15:25:38 Imaging Results None recorded. Procedure Notes None recorded. Medical Equipment None Reported. Allergies Allergen ID Allergen Name Allergen Category Reaction Reaction Severity Criticality Documentation Date Start Date Code Code System Note Provider Name and Address Organization Details Recorded Time [id number] antivenin ,crotalid ae polyvalen t immune Ok (ovine) medicatio n Not available Not available Not available 05/14/2023 [id number] UNK Radha Hobbs [facility] 15:24:33 Medications Name Sig Start Date Stop Date Status Note LastModified by Organization Details LastModified Time Percocet 7.5 mg-325 mg tablet Take 1 tablet every 6 hours by oral route as needed. 023 active Not Available Not Available Not Avai lable Bactrim DS 800 mg-160 mg tablet Take 1 tablet every 12 hours by oral route. 023 active Not Available Not Available Not Avai lable Vitals Date Recorded Body height Body mass index (BMI) Body weight Provider Name and Address Organization Details Last Updated DateTime 05/14/2023 170.18 cm 30.5 kg/m2 83554.51 g Radha Hobbs [facility] 05/14/2023 15:24:12 Social History Question Answer Notes LastModified by Organization Details LastModified Time Tobacco Smoking Status Never Smoker Radha Hobbs [facility] 05/14/2023 15:25:18 What Is Your Level Of Alcohol Consumption? Occasional Recreational [email or web address] Information not available 05/14/2023 How Much Tobacco Do You Chew? 1/day [email or web address] Information not available 05/14/2023 Are You Currently Employed? Yes [email or web address] Information not available 05/14/2023 Do You Or Have You Ever Used E-cigarettes Or Vape? Never Used Electronic Cigarettes [email or web address] Information not available 05/14/2023 What Is Your Occupation? Construction [email or web address] Information not available 05/14/2023 What Is Your Relationship Status? [email or web address] Information not available 05/14/2023 Do You Or Have You Ever Used Smokeless Tobacco? Currently Chews Tobacco [email or web address] Information not available 05/14/2023 Has Tobacco Cessation Counseling Been Provided? No [email or web address] Information not available 05/14/2023 Do You Or Have You Ever Used Any Other Forms Of Tobacco Or Nicotine? Yes [email or web address] Information not available 05/14/2023 Sex: Unknown Functional Status None recorded. Mental Status None recorded. Family History Nothing Reported. Medical History Condition Response Ulcers Y Past Encounters Encounter ID Performer Location Encounter Start Date Encounter Closed Date Diagnosis/Indication Diagnosis SNOMED-CT Code Diagnosis ICD10 Code Diagnosis Note [id number] JERALD MIRZA JR, MD [facility] [address] [place] [address] 05/14/2023 09:31:59 05/14/2023 10:05:16 Male sterilization 785410475 Z30.2 [id number] JERALD MIRZA JR, MD SURGERY SCHEDULE [address] [place] [address] 07/14/2023 12:09:29 07/14/2023 12:10:35 Male sterilization 841998862 Z30.2 Health Concerns Section Related Observation LastModified by Organization Detai ls LastModified Time None Recorded Concern Status LastModified by Organization Details LastModified Time None Recorded Advance Directives Directive None Recorded Payers Insurance Date Sequence Insurance Name Policy Number Policy Kelley Covered Member ID Kelley Member ID Guarantor Name 07/26/2023 1 [employer] [employer] [place] [id number] Axel Dumont [id number] Axel Dumont Notes Date Note Type Note Provider Name and Address Organization Details Recorded Time 05/14/2023 text/html Considering vasectomy. 3 children, . He and desire permanent sterility. No h/o scrotal surgery or trauma. JERALD MIRZA JR, MD [address] [place] [address] [place], [address], [facility] 05/16/2023 10:09:47 07/14/2023 text/html Considering vasectomy. 3 children, . He and desire permanent sterility. No h/o scrotal surgery or trauma. JERALD MIRZA JR, MD [address] [place] [address] [place], [address], [facility] 07/14/2023 14:20:18
[2025-02-16 21:11] VITALS: BP 160/57; PULSE 84; RESP 16; TEMP 36.9; O2SAT 96; BMI 29.7
--- NOTE | 2025-02-16 21:13 | ED_ITS ---
Discharge Plan Disposition Patient Disposition: Home, Self-Care Prescriptions Prescriptions: No Action miconazole nitrate [Antifungal (miconazole)] 2 % cream 1 applic topical BID Qty: 14 0RF Referrals Follow up/Referrals: Rodrigo Wong MD [Primary Care Provider] - See instructions Activity Restrictions/Add. Instructions Additional Instructions/Restrictions: Today you were evaluated in the emergency department and diagnosed with cellulitis, please take your antibiotics as directed. Please follow-up within 3 to 4 days. Please return to the ED for worsening of condition. Clinical Impressions Clinical Impression: Cellulitis Qualifiers: Site of cellulitis: unspecified site Qualified Code(s): L03.90 - Cellulitis, unspecified Instructions Patient Instructions: Cellulitis Print Language Print Language: Indonesian Discharge ED Provider: Emerson Ruvalcaba General Adult HPI <Pascale Anderson APRN - Last Filed: 02/16/25 21:31> General Chief complaint: PAIN Stated complaint: Left arm pit swollen,painful Time Seen by Provider: 02/16/25 21:10 History of Present Illness HPI narrative: patient is a 29-year-old male with no significant PMHx who presents to the ED for complaints of right axilla swelling, pain, tenderness. Patient states the area of swelling has been there approximately 4 weeks, since then 2 other areas have developed. Related Data Previous Rx's ?Medication ?Instructions ?Recorded miconazole nitrate 2 % topical 1 applic topical BID #14 grams 07/29/23 cream (Antifungal (miconazole)) Allergies Allergy/AdvReac Type Severity Reaction Status Date / Time antivenin,crotalidae Allergy Verified 07/29/23 08:22 polyvalent imm PFSH <Pascale Anderson APRN - Last Filed: 02/16/25 21:31> PFSH Disclaimer: The information contained in this section may have been updated after the patient was seen, as this information can be updated by other users. Medical History (Updated 02/16/25 @ 21:29 by Pascale Anderson APRN) Abdominal pain in male Cervical strain Head contusion Concussion Surgical History (Updated 07/29/23 @ 08:23 by Addison Miranda) No significant past surgical history Family History (Updated 07/29/23 @ 08:23 by Addison Miranda) Other No significant family history Social History (Updated 04/23/23 @ 08:47 by Nancy Ramos MA) Smoking Status: Never smoker alcohol intake: never substance use type: denies use and other current occupational status: employed and other Travel in the last 8 weeks?: Inside the [place] household members: spouse housing: house current occupation: [employer] current occupational exposures/hazards: No caffeine: Yes Have you lived/traveled outside US in past 30 days?: No Contact w/someone who lives/traveled outside US past 30 days?: No Exposure to someone with infectious disease in past 14 days?: No Do you have a fever (greater than 100.4 F or 38 C)?: No Have you tested positive for COVID-19?: No Exposed to someone with COVID-19 in past 14 days?: No Do you have a sore throat?: No Do you have a cough?: No Do you have any weakness?: No Do you have any diarrhea?: No Are you experiencing any unusual bleeding?: No Do you have any muscle aches/pain?: No Do you have any abdominal pain?: No Are you experiencing loss of taste or smell?: No Other Medical History Have you received the Flu Vaccine for this season: No Have you received the Pneumonia Vaccine: No <Pascale Anderson APRN - Last Filed: 02/16/25 21:31> ROS Obtained: Yes Systems reviewed as appropriate & no additional complaints except as documented Physical Exam <Pascale Anderson APRN - Last Filed: 02/16/25 21:31> General General appearance: alert and in no apparent distress Head Head exam: atraumatic and normocephalic Eye Eye exam: Present normal appearance and PERRL ENT ENT exam: Present normal exam Neck Neck exam: Present normal inspection Chest Chest inspection: Present normal inspection and symmetric chest wall rise; Absent tenderness Respiratory Respiratory exam: Present normal lung sounds bilaterally Cardiovascular Cardiovascular exam: Present regular rate Abdominal Exam Abdominal exam: Present soft and normal bowel sounds; Absent tenderness Extremities Exam Extremities exam: Present normal inspection and full ROM Back Exam Back exam: Present normal inspection and full ROM Neurological Exam Neurological exam: Present alert and oriented X3 Psychiatric Psychiatric exam: Present normal affect and normal mood Skin Skin exam: Present warm, dry and other (right axilla tenderness, erythema, edema ) Medical Decision Making <Pascale Anderson APRN - Last Filed: 02/16/25 21:31> Medical Records Screening: Per USPSTF and CDC recommendations, given the prevalence of disease in our region, it is our hospital?s policy to screen for HIV and viral Hepatitis for all patients aged 18 and over and those with ongoing risk factors. Johnathan Inquiry Pt receiving controlled substance: No Vital Signs: 02/16/25 21:11 02/16/25 21:30 Temperature 98.4 F 98.4 F Temperature Source Oral Pulse Rate 84 Pulse Rate [Right] 84 Respiratory Rate 16 16 Blood Pressure 160/57 H Blood Pressure [Right Arm] 160/57 H Blood Pressure Mean [Right Arm] 91 02 Sat by Pulse Oximetry 96 Oxygen Delivery Method Room Air Orders (Tests/Meds): ED MEDICATIONS Discontinued Medications Generic Name Dose Route Start Last Admin Trade Name Freq PRN Reason Stop Dose Admin Cephalexin HCl 500 mg 02/16/25 21:27 02/16/25 21:29 Cephalexin 500mg Capsule PO 02/16/25 21:28 500 mg ONCE ONE Administration ORDERS Category Date Time Status POCUS Point of Care (ER Only) Stat Exams 02/16/25 21:12 Ordered Medical Decision Narrative: In summary, patient is a 29-year-old male with no significant PMHx who presents to the ED for complaints of right axilla swelling, pain, tenderness. Patient states the area of swelling has been there approximately 4 weeks, since then 2 other areas have developed. Patient states they are tender. Has not taken any medication prior to arrival. Denies any drainage from the area. Denies fever, chills, body aches, chest pain, shortness of breath, abdominal pain. Upon initial evaluation patient is alert, oriented and cooperative. He is stable. Physical exam remarkable for swelling in the right axilla area, tenderness. POCUS performed by attending. Discussed with patient diagnosis of cellulitis. Placed him on Keflex, administered 1 dose of Keflex tonight. Advised him to follow-up within 3 to 4 days with his PCP. We discussed return precautions to the ED. Patient verbalized understanding <Emerson Ruvalcaba MD - Last Filed: 02/16/25 21:37> Vital Signs: 02/16/25 21:11 02/16/25 21:30 Temperature 98.4 F 98.4 F Temperature Source Oral Pulse Rate 84 Pulse Rate [Right] 84 Respiratory Rate 16 16 Blood Pressure 160/57 H Blood Pressure [Right Arm] 160/57 H Blood Pressure Mean [Right Arm] 91 02 Sat by Pulse Oximetry 96 Oxygen Delivery Method Room Air Orders (Tests/Meds): ED MEDICATIONS Discontinued Medications Generic Name Dose Route Start Last Admin Trade Name Macarena PRN Reason Stop Dose Admin Cephalexin HCl 500 mg 02/16/25 21:27 02/16/25 21:29 Cephalexin 500mg Capsule PO 02/16/25 21:28 500 mg ONCE ONE Administration ORDERS Category Date Time Status POCUS Point of Care (ER Only) Stat Exams 02/16/25 21:12 Ordered Medical Decision Narrative: In summary, patient is a 29-year-old male with no significant PMHx who presents to the ED for complaints of right axilla swelling, pain, tenderness. Patient states the area of swelling has been there approximately 4 weeks, since then 2 other areas have developed. Patient states they are tender. Has not taken any medication prior to arrival. Denies any drainage from the area. Denies fever, chills, body aches, chest pain, shortness of breath, abdominal pain. Upon initial evaluation patient is alert, oriented and cooperative. He is stable. Physical exam remarkable for swelling in the right axilla area, tenderness. POCUS performed by attending. Discussed with patient diagnosis of cellulitis. Placed him on Keflex, administered 1 dose of Keflex tonight. Advised him to follow-up within 3 to 4 days with his PCP. We discussed return precautions to the ED. Patient verbalized understanding I was consulted by the HARRY, and we discussed the complexity of the problems being addressed. I approved the treatment and management plan for this patient's care in the Emergency Department, thus performing a substantive portion of the medical decision making. Emerson Ruvalcaba MD Procedures <Emerson Ruvalcaba MD - Last Filed: 02/16/25 21:37> Limited Ultrasound Indication:: Limited soft tissue ultrasound Indication: Soft tissue swelling and redness of the right axilla Identified structures: Location: Right axilla Findings: Cellulitis without abscess and hyperemia of the right axilla Impression: Superficial cellulitis without abscess right axilla Images were saved to permanent archive The study was technically adequate Soft Tissue CPT Codes: CPT Neck: 81745-21 CPT Upper extremity: 68978-03 CPT Axilla: 46602-37 CPT Chest wall: 02038-53 CPT Breast: 74988-06-GN/LT (complete), 26088-15-UV/LT (limited), CPT Upper Back: 69559-64 CPT Lower Back: 98592-78 CPT Abdominal Wall: 88168-83 CPT Pelvic Wall: 65584-09 CPT Lower Extremity: 43057-65 CPT Other Soft Tissue: 75200-34 This study was performed by me, and I personally interpreted all images/videos. Based on my clinical judgement, these images were adequate and did not necessitate further imaging. Critical Care <Pascale Anderson APRN - Last Filed: 02/16/25 21:31> Critical Care Time Critical Care Time: No
[2025-02-16] MEDS: cephALEXin 500MG CAPSULE 500 MG PO (21:29)
[2025-02-16 21:30] VITALS: BP 160/57; PULSE 84; RESP 16; TEMP 36.9; O2SAT 96
--- NOTE | 2025-02-17 09:29 | PC.NURSE ---
is sending an antibiotic that did not successfully transmit yesterday at time of d/c.
== END 2025-02-16 21:34 | disposition home or self-care (01) ==
PROVIDERS: Emergency Provider Emergency Medicine; PCP Family Medicine
DX: L03.111 Cellulitis of right axilla (principal); M79.601 Pain in right arm
CPT/HCPCS: 99284

== ENCOUNTER 2025-04-29 11:33 | Emergency (ER) | payer BC, SELFPAY ==
--- NOTE | 2025-04-29 11:34 | XR_ITS ---
PROCEDURE INFORMATION: Exam: XR Left Knee Exam date and time: 04/29/2025 11:43 AM Age: 30 years old Clinical indication: Injury or trauma; Other: Chainsaw to left knee TECHNIQUE: Imaging protocol: Radiologic exam of the left knee. Views: 1 or 2 views. COMPARISON: No relevant prior studies available. FINDINGS: Bones/joints: Normal. Soft tissues: Normal. IMPRESSION: No acute findings. Clinical scenario should determine the need for additional imaging.
[2025-04-29 11:38] VITALS: BP 144/94; PULSE 110; RESP 16; TEMP 36.9; O2SAT 96; BMI 30.5
--- OUTSIDE RECORDS SUMMARY | 2025-04-29 11:44 | XMS_ITS | Data Portability ---
Author Organization [facility] JAMES Portillo [employer] Address [address] [place] [address] Assessment No assessment recorded. Plan of Treatment Reminders Order Date Submit Date Provider Last Modified By Organization Details Last Modified Time Details Appointments None recorded. Lab None recorded. Referral None recorded. Procedures None recorded. Surgeries vasectomy (SURG) 2022 023 [email or web address] [facility], [address], [place], [address], 16:53:58 Imaging None recorded. Medication Orders Bactrim DS 800 mg-160 mg tablet 2022 023 [facility], [address] [place] [address], [id number], 16:41:19 Percocet 7.5 mg-325 mg tablet 2022 023 [facility], [address] [place] [address], [id number], 16:41:20 Patient TargetsNo targets recorded. Patient Instructions Encounter Date Encounter Id Patient Instructions Last Modified By Organization Details Last Modified Time 05/14/2023 [id number] DISCUSSION OF VASECTOMY : I explained vasectomy [...] Abnormal Flag Note LastModifiedBy Organization Detail LastModifiedTime 09/21/20 23 09/21/2023 sperm count , semin al fluid (post vasec michael) Unknown Analyte Post Vas Specim en Not Available [facility] With [address], [place], [address], 09/21/2023 09:39:45 09/21/2009/21/2023 sperm count , semin al fluid (post vasec michael) Unknown Analyte Clear Not Available [facility] [address] [place] [address] [address], [place], [address], 09/21/2023 09:39:45 10/08/2010/08/2023 sperm count , semin al fluid (post vasec mcihael) Unknown Analyte Post Vas Specim en Not Available [facility] [address] [place] [address] [address], [place], [address], 10/08/2023 09:42:09 10/08/20 23 10/08/2023 sperm count , semin al fluid (post vasec michael) Unknown Analyte Absent Not Available [facility] [address] [place] [address] [address], [place], [address], 10/08/2023 09:42:09 10/08/20 23 10/08/2023 sperm count , semin al fluid (post vasec michael) Unknown Analyte Non-Mo tile Not Available [facility] [address], [place], [address], 10/08/2023 09:42:09 10/08/20 23 10/08/2023 sperm count , semin al fluid (post vasec michael) Unknown Analyte TA Not Available [facility] [address], [place], [address], 10/08/2023 09:42:09 Result Notes None recorded. Problems No Known Problems Procedures Surgical History Date Name Laterality Status Provider Name and Address Organization Details Recorded Time Vasectomy completed JERALD MIRZA JR, MD [address] [place] [address], [phone], [facility] 07/14/2023 14:19:16 Hernia Repair completed Radha Hobbs [facility] 05/14/2023 15:25:38 Imaging Results None recorded. Procedure Notes None recorded. Medical Equipment None Reported. Allergies Allergen ID Allergen Name Allergen Category Reaction Reaction Severity Criticality Documentation Date Start Date Code Code System Note Provider Name and Address Organization Details Recorded Time 795422 antivenin ,crotalid ae polyvalen t immune [place] (ovine) medicatio n Not available Not available Not available 05/14/2023 [id number] UNK Radha Hobbs [facility] 15:24:33 Medications Name Sig Start Date Stop [...] Updated DateTime 05/14/2023 170.18 cm 30.5 kg/m2 56616.51 g Radha Hobbs [facility] 05/14/2023 15:24:12 Social History Question Answer Notes LastModified by Organizat ion Details LastModified Time Tobacco Smoking Status Never Smoker Radha Hobbs [facility] 05/14/2023 15:25:18 How Much Tobacco Do You Chew? 1/day [email or web address] Information not available 05/14/2023 What Is Your Relationship Status? Information not available 05/14/2023 Has Tobacco Cessation Counseling Been Provided? No [email or web address] Information not available 05/14/2023 Sex: Unknown Functional Status Question Answer Note LastModified by Organizat ion Details LastModified Time Do you or have you ever used any other forms of tobacco or nicotine? Yes [email or web address] Information not available 05/14/2023 What is your level of alcohol consumption? Occasional recreational Information not available 05/14/2023 Do you or have you ever used smokeless tobacco? Currently chews tobacco Information not available 05/14/2023 Are you currently employed? Yes [email or web address] Information not available 05/14/2023 What is your occupation? construction [email or web address] Information not available 05/14/2023 Do you or have you ever used e-cigarettes or vape? Never used electronic cigarettes [email or web address] Information not available 05/14/2023 Mental Status None recorded. Family History Nothing Reported. Medical History Condition Response Ulcers Y Past Encounters Encounter ID Performer Location Encounter Start Date Encounter Closed Date Diagnosis/Indication Diagnosis SNOMED-CT Code Diagnosis ICD10 Code Diagnosis Note [id number] JERALD MIRZA JR, MD [facility] [address] [place] [address] 05/14/2023 09:31:59 05/14/2023 10:05:16 Male sterilization 323099488 Z30.2 [id number] JERALD MIRZA JR, MD SURGERY SCHEDULE [address] [place] [address] 07/14/2023 12:09:29 07/14/2023 12:10:35 Male sterilization 081685170 Z30.2 Health Concerns Section Related Observation LastModified by Organization Detai ls LastModified Time None Recorded Concern Status LastModified by Organization Details LastModified Time None Recorded Advance Directives Directive None Recorded Payers Insurance Date Sequence Insurance Name Policy Number Policy Kelley Covered Member ID Kelley Member ID Guarantor Name 07/26/2023 1 [employer] [id number] Axel Dumont [id number] Axel Dumont Notes Date Note Type Note Provider Name and Address Organization Details Recorded Time 05/14/2023 text/html Considering vasectomy. 3 children, . He and desire permanent sterility. No h/o scrotal surgery or trauma. JERALD MIRZA JR, MD [facility] [place], [address], [facility] 05/16/2023 10:09:47 07/14/2023 text/html Considering vasectomy. 3 children, . He and desire permanent sterility. No h/o scrotal surgery or trauma. JERALD MIRZA JR, MD [address] [place], [address], [facility] 07/14/2023 14:20:18
--- OUTSIDE RECORDS SUMMARY | 2025-04-29 11:44 | XMS_ITS | Clinical Summary ---
Author Organization [facility] Address [address] [place] [address] Care Team Providers Care Diabetic Educator Name Role Phone Nile Mittal MD Primary Care Provider [phone] Social History Tobacco Use Types Packs/Day Years Used Date Smoking Tobacco: Light Smoker Comments:Occasional cigarett e smoker Alcohol Use Standard Drinks/Week Comments Yes 0 (1 standard drink = 0.6 oz pure alcohol) Alcoholic Drinks/day: Occasional alcohol use Sex and Gender Information Value Date Recorded Sex Assigned at Not on file Legal Sex Male 8:40 PM EDT Gender Identity Not on file Sexual Orientation Not on file Last Filed Vital Signs Vital Sign Reading Time Taken Comments Blood Pressure - - Pulse - - Temperature - - Respiratory Rate - - Oxygen Saturation - - Inhaled Oxygen Concentration - - Weight 84.8 kg (186 lb 15.9 oz) 01/06/2016 1:30 PM EDT Height 172.7 cm (5' 8 ) 01/06/2016 1:30 PM EDT Body Mass Index 28.43 01/06/2016 1:30 PM EDT Plan of Treatment Not on file Care Teams Diabetic Educator Relationship Specialty Start Date End Date Nile Mittal MD [address] [place] [id number] PCP - General 02/21/21
--- OUTSIDE RECORDS SUMMARY | 2025-04-29 11:44 | XMS_ITS | Data Portability ---
Author Organization [facility] & [facility] ADMIN Address [address] [place] [id number] Assessment No assessment recorded. Plan of Treatment Reminders Order Date Submit Date Provider Last Modified By Organization Details Last Modified Time Details Appointments None recorde d. Lab None recorde d. Referral None recorde d. Procedures None recorde d. Surgeries None recorde d. Imaging None recorde d. Medication Orders hydroco rtisone -acetic acid 1 %-2 % ear drops 023 09/01/[address], [address] [place] [address], [address], [place], [address], 3 08:29:59 Patient TargetsNo targets recorded. Patient InstructionsNo instructions recorded. Reason for Referral None Reported. Procedures Surgical History Date Name Laterality Status Provider Name and Address Organization Details Recorded Time 3 Binocular Microscopic Exam completed Brandon [facility] 09/10/2023 09:09:58 3 Binocular Microscopic Exam completed Brandon [facility] 09/01/2023 11:00:55 3 vasectomy completed Cait [facility] 08/31/2023 11:02:06 Imaging Results None recorded. Procedure Notes None recorded. Medical Equipment None Reported. Allergies No known drug allergies Medications Name Sig Start Date Stop Date Status Note LastModified by Organization Details LastModified Time azithromyci n 250 mg tablet 08/31 completed Not Available Not Available Not Available prednisone 20 mg tablet 09/01 completed Not Available Not Available Not Available sulfamethox azole 800 mg-trimetho prim 160 mg tablet TAKE ONE TABLET BY MOUTH EVERY TWELVE HOURS -- FINISH ALL MEDICINE -- 09/01 completed Not Available Not Available Not Available hydrocortis one-acetic acid 1 %-2 % ear drops INSTILL 10 DROP INTO AFFECTED EAR DIRECTED TWICE A DAY FOR 10 DAYS active Not Available Not Available No t Available clotrimazol e 1 % topical solution 09/01 completed Not Available Not Available Not Available oxycodone-a cetaminophe n 7.5 mg-325 mg tablet TAKE ONE TABLET BY MOUTH EVERY 6 HOURS NEEDED MAY CAUSE DROWSINES S 08/31 completed Not Available Not Available Not Available methylpredn isolone 4 mg tablets in a dose pack FOLLOW PACKAGE DIRECTION S 08/31 completed Not Available Not Available Not Available bromphenira mine-pseudo ephedrine-D M 2 mg-30 mg-10 mg/5 mL oral syrup TAKE 7.5 ML BY MOUTH EVERY 4 TO 6 HOURS NEEDED FOR SINUS OR SYMPTOMS 08/31 completed Not Available Not Available Not Available amoxicillin 875 mg-potassiu m clavulanate 125 mg tablet TAKE 1 TABLET BY MOUTH TWICE DAILY FOR 7 DAYS 08/31 completed Not Available Not Available Not Available ciprofloxac in 0.3 %-dexametha sone 0.1 % ear drops,suspe nsion ADMINISTE R 4 DROPS INTO LEFT EAR 2 TIMES DAILY FOR 10 DAYS 08/31 completed Not Available Not Available Not Available Vitals Date Recorded Body height Body mass index (BMI) Body weight Provider Name and Address Organization Details Last Updated DateTime 09/01/2023 170.18 cm 30.5 kg/m2 42345.51 g Cait SHEA - NT [facility] [place] 09/01/2023 10:39:53 Date Recorded Body height Body mass index (BMI) Body weight Provider Name and Address Organization Details Last Updated DateTime 09/10/2023 170.18 cm 30.5 kg/m2 78909.51 g Cait SHEA - DAVNT [facility] [place] 09/10/2023 08:50:54 Social History None recorded. Functional Status Question Answer Note LastModified by Organizat ion Details LastModified Time Do you or have you ever used any other forms of tobacco or nicotine? Yes [email or web address] Information not available 09/10/2023 Do you or have you ever used smokeless tobacco? Current snuff user [email or web address] Information not available 09/01/2023 Mental Status None recorded. Family History Nothing Reported. Medical History Condition Response Allergies/Hayfever N Heart Problems N None N Heart Conditions N Emphysema N Migraines N Thyroid Problems N Developmental Delay N Depression N Glaucoma N Anemia N Immune System Disorder N Anesthesia Complications N Heart Attack ([place]) N Anxiety Disorder N Diabetes N Bleeding Disorder N Arthritis N Hearing Loss N Tuberculosis N Acid Reflux (GERD) N Hyperlipidemia N Cancer N Stroke N Asthma N Sleep Disorder N GERD/Reflux N Heart Disease N Fibromyalgia N Headaches N Hypertension N Speech Delay N Kidney Disease N Past Encounters Encounter ID Performer Location Encounter Start Date Encounter Closed Date Diagnosis/Indication Diagnosis SNOMED-CT Code Diagnosis ICD10 Code Diagnosis Note [id number] Laura Perdomo MD [facility] [address] [phone] 09/01/2023 10:36:22 09/01/2023 11:03:54 Acute fungal otitis externa 035799196 B36.9 Was able to remove fungal matter from the right external auditory canal. Boric acid applied to that ear. Patient to practice dry ear precaution s. Would like for him to use acetic acid drops and see me back in the office on Wednesday. Will see him back sooner if needed. [id number] Laura Perdomo MD [facility] [address] [phone] 09/10/2023 08:42:43 09/10/2023 09:08:23 Acute fungal otitis externa 278597297 B36.9 Fungal otitis has resolved with treatment. Advised dry ear precaution s for the next few weeks and to follow up for any signs and symptoms of recurrence . Health Concerns Section Related Observation LastModified by Organization Detai ls LastModified Time None Recorded Concern Status LastModified by Organization Details LastModified Time None Recorded Advance Directives Directive None Recorded Payers Insurance Date Sequence Insurance Name Policy Number Policy Kelley Covered Member ID Kelley Member ID Guarantor Name 09/10/2023 1 [employer] [id number] 3 Axel Dumont [id number] Norberto Dumont Notes Date Note Type Note Provider Name and Address Organization Details Recorded Time 09/01/2023 text/html 28 yo is here fo r right sided fungal otitis externa. Patient went to [facility] while out of state and did not get much better. HIs symptoms started back in April. On July 26 in [place] he was given drops and an oral antibiotic. He did not see any improvement. He went to [facility] at [facility] and was given clotrimazole topical. Patient describes his symptoms as having pain, drainage and muffled hearing in the right ear. Feels like there has been improvement overall. Laura Perdomo MD [address], [place], [address], [facility] [place] 09/01/2023 11:16:59 09/10/2023 text/html 28 yo is here fo r right sided fungal otitis externa. Patient went to [facility] while out of state and did not get much better. HIs symptoms started back in April. On July 26 in [place] he was given drops and an oral antibiotic. He did not see any improvement. He went to [facility] at [facility] and was given clotrimazole topical. Patient describes his symptoms as having pain, drainage and muffled hearing in the right ear. Feels like there has been improvement overall. 09/09/23- patient is here for a one week follow up after using hydrocortisone acetic drops. Patient states he can hear better. States with his work schedule this week he was not able to also use them twice a day. Lauar Perdomo MD [address], [place], [address], [facility] [place] 09/10/2023 09:13:02
[2025-04-29] MEDS: TET/DIPHTH/PERT-ADULT 0.5ML SYRINGE 0.5 ML IM (11:51)
--- NOTE | 2025-04-29 11:57 | PC.NURSE ---
Provider at bedside.
[2025-04-29] MEDS: ONDANSETRON 4MG ODT 4 MG SL (12:05)
[2025-04-29] MEDS: LIDOCAINE 1% 20ML MDV 20 ML IJ (12:05)
--- NOTE | 2025-04-29 12:19 | ED_ITS ---
Discharge Plan Disposition Patient Disposition: Home, Self-Care Prescriptions Prescriptions: No Action miconazole nitrate [Antifungal (miconazole)] 2 % cream 1 applic topical BID Qty: 14 0RF cephalexin 500 mg tablet 500 mg PO BID 7 Days Qty: 14 0RF Referrals Follow up/Referrals: Provider,Referral, [Primary Care Provider, Medical] - See instructions Activity Restrictions/Add. Instructions Additional Instructions/Restrictions: Keep the wound clean by letting gentle soap and water run over it. Do not scrub it as this can make the stitches come loose. The stitches will need to be removed in 10 to 14 days, which can be done at your primary care office, urgent treatment center or the emergency department. If you develop any signs of infection, such as increased redness, swelling, pus draining from the wound, fever, return to the emergency department for evaluation. Avoid bending the knee excessively as this can also make the stitches pop loose. You can keep the wound covered with loose gauze and an Alcides bandage. Do not submerge the knee in water. Clinical Impressions Clinical Impression: Laceration of knee, left, Contact with chainsaw as cause of accidental injury Instructions Patient Instructions: DI for Laceration Repair Print Language Print Language: Amharic Discharge ED Provider: Roe Osborn General Adult HPI General Chief complaint: Wound/Laceration Stated complaint: lac Time Seen by Provider: 04/29/25 11:34 Mode of Arrival: Ambulatory Source of Information: Patient Description of Symptoms (Recalled from ER Triage Doc. by RN): PT presents to the ED for evaluation of a chainsaw cut to L knee that happened 30 minutes ago. PT stated he was cutting wood and chainsaw slipped. Does not think he is UTD on tetanus. Rafael blood thinners. History of Present Illness HPI narrative: Axel Dumont is a 30y male with no significant past medical history who presents to the emergency department for complaints of bleeding from his left knee area after getting cut by a chainsaw. Patient states that he was at work and believes he swung his chainsaw and he hit his left leg around his knee. He had bleeding to the area immediately and put pressure on it. He did not look at the wound but came to the emergency department immediately. This happened approximately 30 minutes prior to arrival. He states that his last tetanus shot is not up-to-date. He denies any other injuries or trauma. Related Data Previous Rx's ?Medication ?Instructions ?Recorded miconazole nitrate 2 % topical 1 applic topical BID #1 4 grams 07/29/23 cream (Antifungal (miconazole)) cephalexin 500 mg tablet 500 mg PO BID 7 days #14 tab s 02/17/25 Allergies Allergy/AdvReac Type Severity Reaction Status Date / Time antivenin,crotalidae Allergy Verified 07/29/23 08:22 polyvalent imm PFSH PFSH Disclaimer: The information contained in this section may have been updated after the patient was seen, as this information can be updated by other users. Medical History (Updated 04/29/25 @ 12:21 by Roe Osborn MD) Abdominal pain in male Cervical strain Head contusion Concussion Surgical History (Updated 07/29/23 @ 08:23 by Addison Miranda) No significant past surgical history Family History (Updated 07/29/23 @ 08:23 by Addison Miranda) Other No significant family history Social History (Updated 04/23/23 @ 08:47 by Nancy Ramos MA) Smoking Status: Never smoker alcohol intake: never substance use type: denies use and other current occupational status: employed and other Travel in the last 8 weeks?: Inside the [place] household members: spouse housing: house current occupation: [employer] current occupational exposures/hazards: No caffeine: Yes Have you lived/traveled outside US in past 30 days?: No Contact w/someone who lives/traveled outside US past 30 days?: No Exposure to someone with infectious disease in past 14 days?: No Do you have a fever (greater than 100.4 F or 38 C)?: No Have you tested positive for COVID-19?: No Exposed to someone with COVID-19 in past 14 days?: No Do you have a sore throat?: No Do you have a cough?: No Do you have any weakness?: No Do you have any diarrhea?: No Are you experiencing any unusual bleeding?: No Do you have any muscle aches/pain?: No Do you have any abdominal pain?: No Are you experiencing loss of taste or smell?: No Other Medical History Have you received the Flu Vaccine for this season: No Have you received the Pneumonia Vaccine: No ROS Obtained: Yes Systems reviewed as appropriate & no additional complaints except as documented Physical Exam General General appearance: alert and in no apparent distress Head Head exam: atraumatic Eye Eye exam: Present normal appearance ENT ENT exam: Present normal external ear exam Neck Neck exam: Present full ROM Chest Chest inspection: Present symmetric chest wall rise Respiratory Respiratory exam: Present normal lung sounds bilaterally; Absent respiratory distress Cardiovascular Cardiovascular exam: Present regular rate and normal rhythm Abdominal Exam Abdominal exam: Present soft exam: Present deferred Extremities Exam Extremities exam: Present normal inspection and other (Left lower extremity: 3 lacerations over the anterior proximal tib-fib/knee measuring approximately 2 cm each. These do not track deep with Q-tip probing and appears superficial. Full range of motion of the knee. No significant swelling. Neurovascular intact distally. Small amount of venous ooz) Neurological Exam Neurological exam: Present alert and oriented X3 Psychiatric Psychiatric exam: Present normal affect Skin Skin exam: Present warm and dry Medical Decision Making Medical Records Screening: Per USPSTF and CDC recommendations, given the prevalence of disease in our region, it is our hospital?s policy to screen for HIV and viral Hepatitis for all patients aged 18 and over and those with ongoing risk factors. Johnathan Inquiry Pt receiving controlled substance: No Vital Signs: 04/29/25 11:38 Temperature 98.4 F Temperature Source Oral Pulse Rate [Right] 110 H Respiratory Rate 16 Blood Pressure [Right Arm] 144/94 H Blood Pressure Mean [Right Arm] 110 02 Sat by Pulse Oximetry 96 Oxygen Delivery Method Room Air Orders (Tests/Meds): ED MEDICATIONS Discontinued Medications Generic Name Dose Route Start Last Admin Trade Name Freq PRN Reason Stop Dose Admin Acetaminophen 1,000 mg 04/29/25 11:34 04/29/25 11:59 Acetaminophen 500mg Tab PO 04/29/25 11:35 Not Given ONCE ONE Ibuprofen 600 mg 04/29/25 11:34 04/29/25 11:59 Ibuprofen 600 Mg Tablet PO 04/29/25 11:35 Not Given ONCE ONE Lidocaine HCl 20 ml 04/29/25 11:53 04/29/25 12:05 Lidocaine 1% 20ml Mdv IJ 04/29/25 11:54 20 ml ONCE ONE Administration Ondansetron HCl 4 mg 04/29/25 12:04 04/29/25 12:05 Ondansetron 4mg Odt SL 04/29/25 12:05 4 mg ONCE ONE Administration Tetanus/Reduced Diphtheria/Acell Pertussis 0.5 ml 04/29/25 11:34 04/29/25 11:51 Tet/Diphth/Pert-Adult 0.5ml Syringe IM 04/29/25 11:35 0.5 ml .ONCE ONE Administration ORDERS Category Date Time Status Knee XR left 2 views [XR knee LT 2V] Stat Exams 04/29/25 11:34 Taken Medical Decision Narrative: Axel Dumont is a 30y male with no significant past medical history who presents to the emergency department for complaints of bleeding from his left knee area after getting cut by a chainsaw. Patient states that he was at work and believes he swung his chainsaw and he hit his left leg around his knee. He had bleeding to the area immediately and put pressure on it. He did not look at the wound but came to the emergency department immediately. This happened approximately 30 minutes prior to arrival. He states that his last tetanus shot is not up-to-date. He denies any other injuries or trauma. On arrival, patient ambulated from wheelchair to the bed. He has bleeding from his left knee area and he is holding pressure. His pants were removed. This revealed 3 linear lacerations over the anterior knee/proximal tib-fib measuring 2 cm each. There is mild amount of venous oozing. The wounds were probed with Q-tip and do not appear to track deep and are superficial. Pressure was continued. Patient does have full range of motion of his knee. He is neuro vastly intact distally. He complains of pain nowhere else. Differential diagnosis includes, but is not limited to: Laceration, joint space involvement, open fracture, among others. The most morbid conditions were considered and workup was based on these. Patient's tetanus shot was updated. He was offered Tylenol and ibuprofen, however he declined. X-ray imaging of the left knee was obtained to evaluate for any fracture or air within the joint space. This was reviewed by me personally prior to official radiology read. There is no fracture or bony abnormalities and no air within the joint space. See final radiology report for details. Given this, there is low concern for joint involvement or open fracture. Will patient was administered lidocaine locally and wound was repaired with 4-0 nylon sutures x 8. See procedure note for details. He tolerated this well. Is felt that he is appropriate for discharge at this time. He was encouraged to keep the wound clean by using gentle soap and water. Instructed to have the sutures removed in 10 to 14 days. Given return precautions for any signs of infection to the area. All questions were answered. He demonstrated understanding and was in agreement this plan. He was then discharged from the emergency department in stable condition peer Procedures Laceration Laceration 1: Site: lower extremity Side (If applicable): left Size (cm): 6 Description: linear Depth: simple, single layer Local Anesthetic: lidocaine 1% Amount of anesthesia used (mL): 6 Pre-repair: wound explored, irrigated extensively and deep structures intact Skin layer closed with: nylon Size (cm): 4-0 Number of sutures: 8 Technique: simple, interrupted Critical Care Critical Care Time Critical Care Time: No
[2025-04-29 12:37] VITALS: BP 134/78; PULSE 81; RESP 16; TEMP 36.9; O2SAT 98
--- NOTE | 2025-05-07 19:55 | PC.NURSE ---
This RN called pt to inform him that abx were called in to pharmacy in [place] by Dr. Spencer. Spoke with pt regarding infection/wound care and removing sutures.
== END 2025-04-29 12:38 | disposition home or self-care (01) ==
PROVIDERS: Emergency Provider Student in an Organized Health Care Education/Training Program
DX: S81.012A Laceration without foreign body, left knee, initial encounter (principal); W29.3XXA Contact with powered garden and outdoor hand tools and machinery, initial encounter
CPT/HCPCS: 12002; 73560; 90471; 90715; 99284; J2003; Q0162